=== PATIENT | female | born 1970 | race Caucasian/White ===

== ENCOUNTER → 2020-03-30 | Outpatient (CLI) | payer BC | LOC: MAMMO 10:25 | PROVIDERS: ATTEND Obstetrics & Gynecology | DX: Z12.31 Encounter for screening mammogram for malignant neoplasm of breast (principal) | CPT/HCPCS: 77067 ==

== ENCOUNTER → 2020-04-13 | Outpatient (CLI) | payer BC ==
--- NOTE | 2020-04-14 08:21 | Diagnostic Imaging Report ---
#[id number] - USBRELIMRT ULTRASOUND OF THE RIGHT BREAST : 04/13/2020 Comparison is made to exams dated: 04/13/2020 mammogram and 03/30/2020 mammogram - [facility]. Color flow and real-time ultrasound were performed on the right breast. There is a benign 6 mm oval cyst with a smooth internal wall in the right breast at 1 o'clock middle depth. This oval cyst is anechoic. This correlates with mammography findings. IMPRESSION: BENIGN There is no sonographic evidence of malignancy. The 6 mm oval cyst in the right breast is benign. A 1 year screening mammogram is recommended. KASSI SCHRADER M.D. ct/penrad:04/13/2020 13:50:46 Silk Soaker: LULY CAPELLAN [facility], [facility] letter sent: Normal Exam Ultrasound BI-RADS: 2 Benign
--- NOTE | 2020-04-14 08:21 | Diagnostic Imaging Report ---
#[id number] - MGDXRT #UNILATERAL RIGHT DIGITAL DIAGNOSTIC MAMMOGRAM WITH SPOT COMPRESSION: 04/13/2020 Comparison is made to exam dated: 03/30/2020 mammogram - [facility]. Current study contains 3 films. The tissue of the right breast is heterogeneously dense. This may lower the sensitivity of mammography. There is a benign 6 mm oval cyst with a circumscribed margin in the right breast at 1 o'clock posterior depth. This is seen in additional views. This correlates with ultrasound findings. No other significant masses or calcifications are seen in the breast. IMPRESSION: BENIGN See the report for ultrasound performed the same day for additional details. There is no mammographic evidence of malignancy. A 1 year screening mammogram is recommended. The patient will be notified by letter of the results. KASSI broussard/penrad:04/13/2020 13:49:58 Outside Sales Associate: Natalee LAURENT(Isela)([place]), [facility] letter sent: Normal Exam Mammogram BI-RADS: 2 Benign
== END ==
LOC: MAMMO 09:51
PROVIDERS: ATTEND Obstetrics & Gynecology
DX: N63.10 Unspecified lump in the right breast, unspecified quadrant (principal)

== ENCOUNTER → 2022-07-12 | Outpatient (CLI) | payer MEDICARE | LOC: MAMMO 13:35 | PROVIDERS: ATTEND Obstetrics & Gynecology | DX: N64.89 Other specified disorders of breast (principal) ==